=== PATIENT | female | born 1990 | race Caucasian/White ===

== ENCOUNTER → 2016-10-24 | Outpatient (CLI) | payer OTHER | END | disposition home or self-care (01) | LOC: C.PAPS 14:41 | PROVIDERS: ATTEND Obstetrics & Gynecology | DX: Z01.419 Encounter for gynecological examination (general) (routine) without abnormal findings (principal) ==

== ENCOUNTER → 2016-10-24 | Outpatient (CLI) | payer OTHER ==
[2016-10-27 03:06] LABS: CHLAMYDIA TRACH RNA*** NOT DETECTED (NOT DETECTED); GC (NEIS GONORRHOEAE)RNA** NOT DETECTED (NOT DETECTED)
== END | disposition home or self-care (01) ==
LOC: C.LAB1850 11:58
PROVIDERS: ATTEND Obstetrics & Gynecology
DX: Z11.3 Encounter for screening for infections with a predominantly sexual mode of transmission (principal)

== ENCOUNTER → 2016-12-18 | Outpatient (CLI) | payer OTHER ==
[2016-12-18 17:51] LABS: BASO % 0.2 %; BASO ABS # 0.02 K/uL (0-0.2); COMPLETE YES; EOS % 1.9 %; HEMATOCRIT 43.9 % (37-47); IG% 0.2 %; LYMPH % 29.2 %; LYMPH ABS # 2.43 K/uL (1.2-3.4); MEAN CELL VOLUME 88.3 fL (80-100); MEAN CORPUSCULAR HEMOGLOBIN 28.4 pg (25-34); MEAN CORPUSCULAR HGB CONC 32.1 g/dl (32-36); MONO % 6.9 %; NEUT % 61.6 %; PLATELET COUNT 285 K/uL (130-400); RED BLOOD COUNT 4.97 M/uL (4.2-5.4); WHITE BLOOD COUNT 8.32 K/uL (4.8-10.8)
[2016-12-18 18:15] LABS: ALB/GLOB RATIO 0.9 (0.9-2); ALT/SGPT 27 U/L (12-78); AST/SGOT 16 U/L (15-37); BLOOD UREA NITROGEN 14 mg/dl (7-18); BUN/CREATININE RATIO 14.5 (10-20); CALCIUM 8.4 mg/dl (8.5-10.1); CARBON DIOXIDE 25 mmol/L (21-32); CHLORIDE 108 mmol/L (98-107); GLUCOSE 115 mg/dl (70-99); POTASSIUM 3.6 mmol/L (3.5-5.1); SODIUM 141 mmol/L (136-145)
[2016-12-18 18:25] LABS: ALKALINE PHOSPHATASE 66 U/L (45-117)
[2016-12-21 18:28] LABS: IGA SERUM 275 mg/dL (81-463); TIS TRANS IGA 1 U/mL (<4)
== END | disposition home or self-care (01) ==
LOC: C.LABBFT 14:28
PROVIDERS: ATTEND Internal Medicine
DX: K52.9 Noninfective gastroenteritis and colitis, unspecified (principal)

== ENCOUNTER → 2016-12-19 | Outpatient (CLI) | payer OTHER | END | disposition home or self-care (01) | LOC: C.LABSPEC 17:03 | PROVIDERS: ATTEND Internal Medicine | DX: K52.9 Noninfective gastroenteritis and colitis, unspecified (principal) ==

== ENCOUNTER → 2017-01-31 | Outpatient (CLI) | payer OTHER | END | disposition home or self-care (01) | LOC: C.LABSPEC 12:43 | DX: S91.302A Unspecified open wound, left foot, initial encounter (principal); X58.XXXA Exposure to other specified factors, initial encounter ==

== ENCOUNTER → 2017-02-01 | Outpatient (CLI) | payer OTHER ==
--- NOTE | 2017-02-01 10:52 | DIAGNOSTIC IMAGING REPORT ---
LEFT FOOT MIN 3 VIEWS ROUTINE CLINICAL HISTORY: 26 years-old Female presenting with LEFT FOOT WITH PUNCTURE WOUND, CELLULITIS. TECHNIQUE: Frontal, oblique, and lateral views of the left foot were obtained. COMPARISON: None. FINDINGS: Increased soft tissue density and apparent skin thickening over the plantar aspect of the distal foot. No underlying osseous injury or erosion. No malalignment. IMPRESSION: 1. No acute osseous injury or radiographic evidence of osteomyelitis. 2. Soft tissue thickening along the plantar aspect of the distal foot may represent the reported site of abnormality. Electronically signed by: Willie Choudhury M.D. 02/01/2017 10:51 AM Dictated Date/Time: 02/01/2017 10:48 AM
== END | disposition home or self-care (01) ==
LOC: C.RADBBURG 02:03
DX: L03.116 Cellulitis of left lower limb (principal); S91.332A Puncture wound without foreign body, left foot, initial encounter; X58.XXXA Exposure to other specified factors, initial encounter

== ENCOUNTER → 2017-06-25 | Outpatient (CLI) | payer OTHER ==
[2017-06-25 14:05] LABS: PREG INTERNAL NEGATIVE QC NEG CLEAR BACKGROUND; PREG INTERNAL POSITIVE QC POS CONTROL LINE
== END | disposition home or self-care (01) ==
LOC: C.LAB1850 13:05
PROVIDERS: ATTEND Obstetrics & Gynecology
DX: N93.9 Abnormal uterine and vaginal bleeding, unspecified (principal)

== ENCOUNTER → 2017-06-25 | Outpatient (CLI) | payer OTHER | END | disposition home or self-care (01) | LOC: C.PATHSPEC 15:41 | PROVIDERS: ATTEND Obstetrics & Gynecology | DX: N93.9 Abnormal uterine and vaginal bleeding, unspecified (principal) ==

== ENCOUNTER → 2017-10-18 | Outpatient (CLI) | payer OTHER | END | disposition home or self-care (01) | LOC: C.LABSPEC 17:38 | PROVIDERS: ATTEND Nurse Practitioner | DX: R35.0 Frequency of micturition (principal) ==

== ENCOUNTER → 2017-11-18 | Outpatient (CLI) | payer OTHER | END | disposition home or self-care (01) | LOC: C.LABSPEC 13:19 | PROVIDERS: ATTEND Obstetrics & Gynecology | DX: Z01.419 Encounter for gynecological examination (general) (routine) without abnormal findings (principal) ==

== ENCOUNTER → 2017-11-18 | Outpatient (CLI) | payer OTHER | END | disposition home or self-care (01) | LOC: C.PAPS 13:37 | PROVIDERS: ATTEND Obstetrics & Gynecology | DX: Z12.4 Encounter for screening for malignant neoplasm of cervix (principal) ==

== ENCOUNTER → 2018-02-21 | Outpatient (CLI) | payer OTHER | END | disposition home or self-care (01) | LOC: C.LABBFT 10:07 | PROVIDERS: ATTEND Specialist | DX: E28.2 Polycystic ovarian syndrome (principal) ==

== ENCOUNTER 2021-12-07 07:29 | Inpatient (IN) ==
[2021-12-07] MEDS ORDERED: OXYTOCIN 30 UNITS/500 ML BAG IV PRN ×2 (07:39)
[2021-12-07 08:24] LABS: Hemoglobin 11.9 g/dL (12.0-16.0); Mean Corpuscular Hemoglobin 28.5 pg (25-34); Mean Corpuscular Hgb Conc 33.1 g/dL (32-36); Mean Corpuscular Volume 86.1 fL (80-100); Mean Platelet Volume 10.1 fL (7.4-10.4); Platelet Count 268 K/uL (130-400); RDW Coefficient of Variation 16.3 % (11.5-14.5); RDW Standard Deviation 52.1 fL (36.4-46.3); Red Blood Count 4.18 M/uL (4.2-5.4); White Blood Count 10.25 K/uL (4.8-10.8)
[2021-12-07] MEDS: LACTATED RINGER'S 1,000 ML IV PRN ×3 (09:18→17:29)
--- NOTE | 2021-12-07 09:24 | History & Physical Report ---
Date of Service December 07, 2021 Assessment & Plan (1) Type II diabetes mellitus: (2) Diabetes in : Plan: 31 y/o G1 at 39 2/7 wga presents for IOL for T2DM VSS Fetus cat 1 Labor - 35cc lewis placed after verbal consent obtained, pt tolerated well. Will start pit up to [address] T2DM - will start w/ q2h BG, consider q4 if all normal. Q1 in active labor GBS neg epidural PRN Admission and Anticipated Discharge Date Admission Date: December 07, 2021 History of Present Illness Chief Complaint: IOL Primary Care Provider: ARACELI Tejada 31 y/o G1 at 39 2/7 wga presents for IOL for T2DM. +FM; denies regular ctx, LO F, VB PNI: T2DM BMI 45 Clomid preg Rh neg Past [employer] hx: G1 02/2021 neg cotest denies hx STIs Allergies Allergy/AdvReac Type Severity Reaction Status Date / Time No Known Allergies Allergy Verified 12/06/21 09:15 Home Medications Medication Instructions Recorded Confirmed Type nystatin-triamcinolone 100,000 TOP .APPLY SPARINGLY TO AFFECTED 10/07/19 12/06/21 History unit/gram-0.1 % topical ointment AREA(S) 3 TIMES DAILY NEEDED. PRN prenat.vits,margarita,ucg-dvlj-raoit 1 tab PO DAILY 04/26/21 12/06/21 History acetone (urine) test (Ketone Urine #50 ea 05/16/21 12/06/21 Rx Test) pen needle, diabetic 32 gauge x #100 ea 05/16/21 12/06/21 Rx 5/32" (BD Ultra-Fine Marina Pen Needle) progesterone micronized VAGINAL 05/29/21 12/06/21 History insulin NPH isoph U-100 human 100 10 unit SUBCUT HS #15 ml 07/04/21 12/06/21 Rx unit/mL (3 mL) subcutaneous pen (Novolin N Flexpen) metformin 500 mg tablet,extended 500 mg PO DAILY #30 tab 08/11/21 12/06/21 Rx release 24 hr breast pump #1 ea 08/15/21 12/06/21 Rx insulin lispro 100 unit/mL 15 unit SUBCUT TID ml 11/16/21 12/06/21 History subcutaneous pen (Humalog KwikPen (U-100) Insulin) Patient History Medical History Amenorrhea History of chicken pox History of hysterosalpingogram Infertility PCOS (polycystic ovarian syndrome) Prediabetes Type II diabetes mellitus Surgical History History of wisdom tooth extraction S/P colonoscopy Family History Other Breast cancer Diabetes Dyslipidemia Hypertension Denies family history of Ovarian cancer Prostate cancer Colorectal cancer Uterine cancer Social History Smoking Status: Former smoker Cigarettes Per Day: QUIT APR 2018; Second Hand Exposure: No; Hx Alcohol Use: No Hx Substance Use: No Preferred Language: Wolof Communication Ability: Effective Tentering Machine Off Bearer Required: No Beliefs That Will Affect Care: None marital status: marital status details: Catracho Alvarado (31) [phone] Current Living Situation: Spouse Current Living Situation Comment: lives with spouse, dog, cats-paitent wearing gloves/mask current occupational status: employed current occupation: [employer] patient access Feels Safe at Home: Yes Childhood Exposure to Second-Hand Smoke: No caffeine: Yes Dental Care, Regularly: Yes Physical Activity Frequency: 1-2 Times per Week Seatbelt Use: always Sunscreen Use: Yes (505 OF THE TIME) Assistive Devices: None Physical Exam Genitourinary: OB Exam Abdomen: + vertex (confirmed by BSUS) and + estimated weight (7-8) Manual OB Exam: + cervical dilation 1 cm, + cervical effacement 50% and + station -2 OB Exam Monitor Tracing: + external FHT monitor used, + external uterine monitor used (q4-6) and + category I (150/mod/-accel/-decel) Results & Data ([place]) Vital Signs (Past 12 Hours) Vital Signs Temp Pulse Resp BP 12/07/21 08:01 98.1 F 20 12/07/21 07:51 85 136/84 12/07/21 07:45 99 H 163/86 H Laboratory Results OB Labs: Blood Type O Negative 05/09/21 Antibody Screen NEGATIVE 09/22/21 Hemoglobin 11.7 g/dL (12.0-16.0) L 09/22/21 Hematocrit 35.5 % (37-47) L 09/22/21 Mean Corpuscular Volume 83.5 fL (80-100) 05/09/21 Platelet Count 320 K/uL (130-400) 05/09/21 Varicella-Zoster IgG Antibody 1931.00 INDEX 02/21/18 Rubella IgG Antibody Immune (Immune) 05/09/21 Rapid Plasma Reagin Nonreactive (Nonreactive) 05/09/21 Hepatitis B Surface Antigen Neg (Neg) 05/09/21 HIV (1&2) Ab and P24 Ag, 4th Gener Neg (Neg) 05/09/21 OB Optional Labs: Chlamydia trachomatis RNA NOT DETECTED (NOT DETECTED) 05/09/21 Neisseria gonorrhoeae RNA NOT DETECTED (NOT DETECTED) 05/09/21 Thyroid Stimulating Hormone (TSH) 1.560 uIu/ml (0.300-4.500) 03/15/21 Labs Reviewed: declines cf/sma--[facility] low risk panorama--[facility] afp declined----[facility] GBS neg Diagnostic Findings 11/13 EFW 34%, post plac Coding Level of Care Code None Diagnoses Type II diabetes mellitus E11.9 Diabetes in O24.919
--- NOTE | 2021-12-07 11:06 | Communication Note ---
Date of Service: December 07, 2021 Nursing made me aware of elevated BPs. Had normal BP on arrival this AM. Following BP was taken following lewis bulb placement and elevated with mild range repeat. Following that, had severe ranges that were present on both size cuffs. Pt denies s/s pre-eclampsia. She does appear very uncomfortable in bed, she notes not necessarily from lewis bulb itself but from the bed making back very uncomfortable. had her sit in chair and bp was mild range. Will order labs as still mild range when sitting in chair
[2021-12-07 12:28] LABS: Albumin Globulin Ratio 0.9 (0.9-2); Albumin Level 3.1 gm/dl (3.4-5.0); BUN Creatinine Ratio 17.7 (10-20); Bilirubin,Total 0.3 mg/dl (0.2-1.0); Calcium 8.8 mg/dl (8.5-10.1); Creatinine Clr Calc Pharmacy 169.5 ml/min; Est GFR (African American) 141.2 ml/min; Est GFR (Non-African American) 121.9 ml/min; Globulin 3.5 gm/dl (2.5-4.0); Total Protein 6.6 gm/dl (6.0-8.3)
--- NOTE | 2021-12-07 12:35 | Communication Note ---
Date of Service: December 07, 2021 Pt appears very comfortable and without symptoms still. Manual BP cuff noted BP that was just under severe, repeat automatic shortly after was again just under severe. CMP is wnl, UP:C pending. Discussed w/ pt that if continues to have persistent severe range BPs, would meet criteria for severe PIH and recommend magnesium at that time. Pt and verbalize understanding
[2021-12-07 13:51] LABS: Creatinine Urine Random 161.1 mg/dl; Protein Creatinine Ratio Urine 0.4 (0-0.2); Total Protein Urine Random 71.6 mg/dl (0-11.9)
--- NOTE | 2021-12-07 14:26 | Labor Progress Brief Note ---
Date of Service December 07, 2021 Subjective Pt has gotten much more comfortable laying on right side now - BPs have improved to just mild range now that she notes she is more comfortable Assessment & Plan (1) Type II diabetes mellitus: (2) Mild pre-eclampsia: Plan: 31 y/o G1 at 39 2/7 wga presents for IOL for T2DM VSS Fetus cat 1 Labor - [place] out, will titrate pit and plan to arom with next check T2DM - will start w/ q2h BG, remained normal. Q1 in active labor Pre-eclampsia w/o SF - BPs improved to mild range once pt got more comfortable but remained mild range, UP:C 0.4 so meets criteria for PET w/o SF. Will continue to monitor GBS neg epidural PRN Admission and Anticipated Discharge Date Admission Date: December 07, 2021 Physical Exam Genitourinary: Manual OB Exam: + cervical dilation 4 cm, + cervical effacement 50% and + station -2 OB Exam Monitor Tracing: + external FHT monitor used, + external uterine monitor used (q4-6) and + category I (150/mod/-accel/-decel) Balloon was palpated in vagina, SVE performed following removal of balloon Results [facility] Data ([facility]) Vital Signs (Past 12 Hours) Vital Signs Temp Pulse Resp BP 12/07/21 14:06 83 143/81 H 12/07/21 13:54 76 20 146/95 H 12/07/21 13:36 80 179/80 H 12/07/21 13:05 79 142/84 H 12/07/21 13:00 18 12/07/21 12:30 18 12/07/21 12:29 68 159/90 H 12/07/21 11:57 64 20 161/87 H 12/07/21 11:30 98.2 F 69 18 166/81 H 12/07/21 11:00 75 20 148/91 H 12/07/21 10:46 20 12/07/21 10:32 69 20 164/87 H 12/07/21 10:18 70 170/80 H 12/07/21 10:16 71 20 173/86 H 12/07/21 10:01 77 184/91 H 12/07/21 10:00 20 12/07/21 09:29 73 153/90 H 12/07/21 09:27 75 177/93 H 12/07/21 09:00 20 12/07/21 08:01 98.1 F 20 12/07/21 07:51 85 136/84 12/07/21 07:45 99 H 163/86 H Coding Level of Care Code None Diagnoses Type II diabetes mellitus E11.9 Mild pre-eclampsia O14.00
--- NOTE | 2021-12-07 15:53 | Labor Progress Brief Note ---
Date of Service December 07, 2021 Subjective Contractions more painful, BPs primarily mild range - last severe was going off while pt getting up to go to bathroom and mild repeat Assessment & Plan (1) Type II diabetes mellitus: (2) Mild pre-eclampsia: Plan: 31 y/o G1 at 39 2/7 wga presents for IOL for T2DM VSS Fetus cat 1 Labor - pit at 14, now s/p arom - dark mec fluid noted T2DM - q2h BG, remained normal. Q1 in active labor Pre-eclampsia w/o SF - Continue to monitor GBS neg epidural PRN Admission and Anticipated Discharge Date Admission Date: December 07, 2021 Physical Exam Genitourinary: Manual OB Exam: + cervical dilation 4 cm, + cervical effacement 50%, + station -2 and + amniotic fluid (AROM w/ mec fluid) OB Exam Monitor Tracing: + external FHT monitor used, + external uterine monitor used (3-4) and + category I (150/mod/occ accel/-decel) Results & Data ([facility]) Vital Signs (Past 12 Hours) Vital Signs Temp Pulse Resp BP 12/07/21 15:41 67 147/81 H 12/07/21 15:06 66 161/83 H 12/07/21 15:00 18 12/07/21 14:35 68 147/88 H 12/07/21 14:06 83 143/81 H 12/07/21 14:00 18 12/07/21 13:54 76 20 146/95 H 12/07/21 13:36 80 179/80 H 12/07/21 13:05 79 142/84 H 12/07/21 13:00 18 12/07/21 12:30 18 12/07/21 12:29 68 159/90 H 12/07/21 11:57 64 20 161/87 H 12/07/21 11:30 98.2 F 69 18 166/81 H 12/07/21 11:00 75 20 148/91 H 12/07/21 10:46 20 12/07/21 10:32 69 20 164/87 H 12/07/21 10:18 70 170/80 H 12/07/21 10:16 71 20 173/86 H 12/07/21 10:01 77 184/91 H 12/07/21 10:00 20 12/07/21 09:29 73 153/90 H 12/07/21 09:27 75 177/93 H 12/07/21 09:00 20 12/07/21 08:01 98.1 F 20 12/07/21 07:51 85 136/84 12/07/21 07:45 99 H 163/86 H Coding Level of Care Code None Diagnoses Type II diabetes mellitus E11.9 Mild pre-eclampsia O14.00
[2021-12-07] MEDS ORDERED: BUPIVACAINE 0.25% 30 ML VIAL ONE (16:11)
[2021-12-07] MEDS ORDERED: SODIUM CHLORIDE 0.9% INJ 10 ML VIAL ONE (16:11)
[2021-12-07] MEDS ORDERED: fentaNYL citrate 100 MCG/2 ML VIAL ONE (16:11)
[2021-12-07] MEDS ORDERED: ePHEDrine sulfate 50 MG/ML AMP ONE (16:11)
[2021-12-07] MEDS ORDERED: fentaNYL 2MCG/ML ROPIVACAINE 1.25MG/ML 100 ML BAG EPI ONE (16:12)
--- NOTE | 2021-12-07 17:17 | Anesthesiology Consultation ---
Date of Service December 07, 2021 Assessment & Plan Chart Review Chart Review: Acceptable Risk for Labor Epidural Consults Requested none History Height/Weight Height: 5 ft 4 in Weight: 118.388 kg Allergies Allergy/AdvReac Type Severity Reaction Status Date / Time No Known Allergies Allergy Verified 12/07/21 13:32 Medications Home Medications Medication Instructions Recorded Confirmed Last Taken prenat.vits,margarita,kck-rajb-trwcl 1 tab PO DAILY 04/26/21 12/07/21 12/07/21 acetone (urine) test (Ketone Urine #50 ea 05/16/21 12/06/21 Unknown Test) pen needle, diabetic 32 gauge x #100 ea 05/16/21 12/06/21 Unknown " (BD Ultra-Fine Marina Pen Needle) insulin NPH isoph U-100 human 100 10 unit SUBCUT HS #15 ml 07/04/21 12/07/21 12/06/21 unit/mL (3 mL) subcutaneous pen (Novolin N Flexpen) breast pump #1 ea 08/15/21 12/06/21 Unknown insulin lispro 100 unit/mL 15 unit SUBCUT TID ml 11/16/21 12/07/21 12/07/21 06:30 subcutaneous pen (Humalog KwikPen (U-100) Insulin) Active Medications Generic Name Dose Route Start Last Admin Trade Name Freq PRN Reason Stop Dose Admin Oxytocin 30 units in 500 mls @ 14 mls/hr 12/07/21 07:39 12/07/21 14:36 Pitocin IV 12/09/21 07:38 0.84 units/hr .Q24H PRN 14 mls/hr Labor Induction/Augmentation Titration Protocol 0.84 UNITS/HR Lactated Ringer's 1,000 mls @ 125 mls/hr 12/07/21 07:39 12/07/21 16:45 Lr IV 12/09/21 07:38 125 mls/hr .Q8H PRN Infusion L&D Protocol Protocol Past Medical History Medical History Amenorrhea History of chicken pox History of hysterosalpingogram Infertility PCOS (polycystic ovarian syndrome) Prediabetes Type II diabetes mellitus Past Family History Family History Other Breast cancer Diabetes Dyslipidemia Hypertension Denies family history of Ovarian cancer Prostate cancer Colorectal cancer Uterine cancer Past Surgical History Surgical History History of wisdom tooth extraction S/P colonoscopy Social History Smoking Status: Former smoker tobacco type: cigarettes Smoking cigarettes per day: QUIT APR 2018 Hx Alcohol Use: No Hx Substance Use: No substance use type: does not use Physical Exam Vital Signs Last Vital Signs Temp 36.8 C 12/07/21 11:30 Pulse 92 H 12/07/21 17:12 Resp 20 12/07/21 16:30 BP 142/72 H 12/07/21 17:12 Pulse Ox 97 12/07/21 17:12 Testing Laboratory Results 12/07/21 07:55 12/07/21 11:44 12/07/21 12/07/21 12/07/21 16:04 13:53 11:01 POC Glucose 80 86 75 12/07/21 08:59 POC Glucose 116 H
[2021-12-07] MEDS ORDERED: NALOXONE HCL 1 MG in SODIUM CHLORIDE 0.9% 1000ML 1,000 ML IV PRN (17:18)
[2021-12-07] MEDS ORDERED: ePHEDrine sulfate 50 MG/ML AMP IV PRN (17:18)
[2021-12-07] MEDS ORDERED: fentaNYL 2MCG/ML ROPIVACAINE 1.25MG/ML 100 ML BAG EPI PRN (17:18)
[2021-12-07] MEDS ORDERED: NALBUPHINE HCL INJ 10 MG/ML AMP IV PRN (17:18)
[2021-12-07] MEDS ORDERED: diphenhydrAMINE 50 MG/ML VIAL IV PRN (17:18)
[2021-12-07] MEDS ORDERED: NALOXONE HCL 0.4 MG/1 ML VIAL/CARP IV PRN (17:18)
--- NOTE | 2021-12-07 18:58 | Labor Progress Brief Note ---
Date of Service December 07, 2021 Subjective Comfortable w/ epidural, severe BPs that occurred following arom with si gnificant ctx pain now back to mild rnage Assessment & Plan (1) Type II diabetes mellitus: (2) Mild pre-eclampsia: Plan: 31 y/o G1 at 39 2/7 wga presents for IOL for T2DM VSS Fetus cat 1 Labor - pit at 14, progression in station noted, some in dilation as well. IUPC placed for more accurate monitoring, cont augmentation T2DM - q2h BG, remained normal. Q1 in active labor Pre-eclampsia w/o SF - BPS did get severe after arom but pt became very uncomfortable at that time and had been mild range right before so I think pain related. Have settled back into mild range now, will continue to monitor GBS neg epidural severe Admission and Anticipated Discharge Date Admission Date: December 07, 2021 Physical Exam Genitourinary: Manual OB Exam: + cervical dilation (4-5), + cervical effacement 50%, + station -2 (station has progressed from last exam) and + amniotic fluid meconium OB Exam Monitor Tracing: + external FHT monitor used, + intra-uterine pressure catheter used (placed, q3-4) and + category I (150/mod/occ accel/-decel) Results & Data ([facility]) Vital Signs (Past 12 Hours) Vital Signs Temp Pulse Resp BP Pulse Ox 12/07/21 18:52 71 98 12/07/21 18:49 75 148/82 H 12/07/21 18:47 73 165/90 H 95 12/07/21 18:42 74 97 12/07/21 18:37 71 98 12/07/21 18:32 73 159/88 H 99 12/07/21 18:27 72 97 12/07/21 18:25 68 93 12/07/21 18:22 73 99 12/07/21 18:17 73 159/82 H 98 12/07/21 18:12 75 98 12/07/21 18:07 71 97 12/07/21 18:02 71 99 12/07/21 18:00 72 18 142/75 H 12/07/21 17:57 75 99 12/07/21 17:55 76 136/73 12/07/21 17:52 78 97 12/07/21 17:50 76 132/66 12/07/21 17:47 77 97 12/07/21 17:45 75 131/64 12/07/21 17:42 75 98 12/07/21 17:40 78 135/64 12/07/21 17:37 75 99 12/07/21 17:36 75 143/69 H 12/07/21 17:32 82 100 12/07/21 17:30 76 18 121/59 L 12/07/21 17:27 82 98 12/07/21 17:25 80 127/65 12/07/21 17:22 86 130/61 98 12/07/21 17:20 94 H 120/64 12/07/21 17:17 94 H 98 12/07/21 17:12 92 H 142/72 H 97 12/07/21 17:09 108 H 142/73 H 12/07/21 17:07 92 H 98 12/07/21 17:06 92 H 141/72 H 12/07/21 17:03 85 139/67 12/07/21 17:02 75 99 12/07/21 17:01 83 148/86 H 12/07/21 17:00 98.1 F 18 12/07/21 16:57 70 165/84 H 100 12/07/21 16:55 68 158/75 H 12/07/21 16:52 80 98 12/07/21 16:49 81 174/82 H 12/07/21 16:47 71 99 12/07/21 16:42 65 99 12/07/21 16:38 67 184/85 H 12/07/21 16:37 64 100 12/07/21 16:32 69 97 12/07/21 16:30 20 12/07/21 16:17 58 L 179/92 H 12/07/21 16:08 63 183/92 H 12/07/21 15:41 67 147/81 H 12/07/21 15:06 66 161/83 H 12/07/21 15:00 18 12/07/21 14:35 68 147/88 H 12/07/21 14:06 83 143/81 H 12/07/21 14:00 18 12/07/21 13:54 76 20 146/95 H 12/07/21 13:36 80 179/80 H 12/07/21 13:05 79 142/84 H 12/07/21 13:00 18 12/07/21 12:30 18 12/07/21 12:29 68 159/90 H 12/07/21 11:57 64 20 161/87 H 12/07/21 11:30 98.2 F 69 18 166/81 H 12/07/21 11:00 75 20 148/91 H 12/07/21 10:46 20 12/07/21 10:32 69 20 164/87 H 12/07/21 10:18 70 170/80 H 12/07/21 10:16 71 20 173/86 H 12/07/21 10:01 77 184/91 H 12/07/21 10:00 20 12/07/21 09:29 73 153/90 H 12/07/21 09:27 75 177/93 H 12/07/21 09:00 20 12/07/21 08:01 98.1 F 20 12/07/21 07:51 85 136/84 12/07/21 07:45 99 H 163/86 H Coding Level of Care Code None Diagnoses Type II diabetes mellitus E11.9 Mild pre-eclampsia O14.00
[2021-12-07] MEDS ORDERED: CALCIUM CARBONATE 500 MG CHEWABLE TAB PO PRN (19:15)
--- NOTE | 2021-12-07 22:49 | Labor Progress Brief Note ---
Date of Service December 07, 2021 Subjective Comfortable w/ epidural, some pressure Assessment & Plan (1) Type II diabetes mellitus: (2) Mild pre-eclampsia: Plan: 31 y/o G1 at 39 2/7 wga presents for IOL for T2DM VSS Fetus cat 1 Labor - pit at 16, progression in effacement and station noted from my exam. I think pt is starting to kick into labor now, cont monitor T2DM - q2h BG, remained normal. Q1 in active labor Pre-eclampsia w/o SF - BPS stabilized GBS neg epidural in place Admission and Anticipated Discharge Date Admission Date: December 07, 2021 Physical Exam Genitourinary: Manual OB Exam: + cervical dilation (4-5), + cervical efface ment 50% (progression noted from last exam) and + station -1 OB Exam Monitor Tracing: + external FHT monitor used, + intra-uterine pressure catheter used (q3, was adequate but seems like IUPC moved a little during repositioning ) and + category I (150/mod/occ accel/-decel) Results & Data ([facility]) Vital Signs (Past 12 Hours) Vital Signs Temp Pulse Resp BP Pulse Ox 12/07/21 22:42 83 98 12/07/21 22:37 81 99 12/07/21 22:33 77 136/70 12/07/21 22:32 76 96 12/07/21 22:27 89 97 12/07/21 22:22 92 H 96 12/07/21 22:19 82 135/67 12/07/21 22:17 80 96 12/07/21 22:12 80 95 12/07/21 22:07 82 96 12/07/21 22:04 76 134/64 12/07/21 22:02 77 97 12/07/21 21:57 82 97 12/07/21 21:52 86 97 12/07/21 21:48 77 134/73 12/07/21 21:47 72 97 12/07/21 21:42 79 97 12/07/21 21:37 76 96 12/07/21 21:34 83 145/78 H 12/07/21 21:32 89 98 12/07/21 21:27 80 97 12/07/21 21:22 80 97 12/07/21 21:17 90 126/61 98 12/07/21 21:12 83 98 12/07/21 21:07 82 98 05/19/22 21:04 81 131/65 05 21:02 86 97 05 21:00 18 12/07/21 20:57 83 98 05 20:52 80 99 0522 20:51 99.0 F 12/07/21 20:49 94 H 137/75 051922 20:47 78 99 0522 20:46 72 92 051922 20:42 73 97 05 20:37 80 98 051922 20:33 71 144/78 H 12/07/21 20:32 69 97 05 20:27 80 97 12/07/21 20:23 82 94 12/07/21 20:22 71 98 12/07/21 20:18 78 149/87 H 12/07/21 20:17 81 98 12/07/21 20:12 83 100 12/07/21 20:07 75 97 12/07/21 20:03 81 149/77 H 12/07/21 20:02 87 99 12/07/21 20:00 18 12/07/21 19:57 85 97 12/07/21 19:52 81 100 12/07/21 19:47 76 143/73 H 97 12/07/21 19:42 70 98 12/07/21 19:37 73 96 05 19:32 71 144/73 H 97 12/07/21 19:27 77 99 05 19:22 70 98 05 19:18 71 158/78 H 12/07/21 19:17 73 98 05 19:12 67 100 05 19:07 82 97 12/07/21 19:04 69 158/80 H 12/07/21 19:02 71 100 05 19:00 18 12/07/21 18:57 73 100 05 18:52 71 98 0522 18:49 75 148/82 H 22 18:47 73 165/90 H 95 051922 18:42 74 97 051922 18:37 71 98 051922 18:32 73 159/88 H 99 22 18:27 72 97 0522 18:25 68 93 12/07/21 18:22 73 99 12/07/21 18:17 73 159/82 H 98 12/07/21 18:12 75 98 12/07/21 18:07 71 97 12/07/21 18:02 71 99 12/07/21 18:00 72 18 142/75 H 12/07/21 17:57 75 99 12/07/21 17:55 76 136/73 12/07/21 17:52 78 97 12/07/21 17:50 76 132/66 12/07/21 17:47 77 97 12/07/21 17:45 75 131/64 12/07/21 17:42 75 98 12/07/21 17:40 78 135/64 12/07/21 17:37 75 99 12/07/21 17:36 75 143/69 H 12/07/21 17:32 82 100 12/07/21 17:30 76 18 121/59 L 12/07/21 17:27 82 98 12/07/21 17:25 80 127/65 12/07/21 17:22 86 130/61 98 12/07/21 17:20 94 H 120/64 12/07/21 17:17 94 H 98 12/07/21 17:12 92 H 142/72 H 97 12/07/21 17:09 108 H 142/73 H 12/07/21 17:07 92 H 98 12/07/21 17:06 92 H 141/72 H 12/07/21 17:03 85 139/67 12/07/21 17:02 75 99 12/07/21 17:01 83 148/86 H 12/07/21 17:00 98.1 F 18 12/07/21 16:57 70 165/84 H 100 12/07/21 16:55 68 158/75 H 12/07/21 16:52 80 98 12/07/21 16:49 81 174/82 H 12/07/21 16:47 71 99 12/07/21 16:42 65 99 12/07/21 16:38 67 184/85 H 12/07/21 16:37 64 100 12/07/21 16:32 69 97 12/07/21 16:30 20 12/07/21 16:17 58 L 179/92 H 12/07/21 16:08 63 183/92 H 12/07/21 15:41 67 147/81 H 12/07/21 15:06 66 161/83 H 12/07/21 15:00 18 12/07/21 14:35 68 147/88 H 12/07/21 14:06 83 143/81 H 12/07/21 14:00 18 12/07/21 13:54 76 20 146/95 H 12/07/21 13:36 80 179/80 H 12/07/21 13:05 79 142/84 H 12/07/21 13:00 18 12/07/21 12:30 18 12/07/21 12:29 68 159/90 H 12/07/21 11:57 64 20 161/87 H 12/07/21 11:30 98.2 F 69 18 166/81 H 12/07/21 11:00 75 20 148/91 H 12/07/21 10:46 20 Coding Level of Care Code None Diagnoses Type II diabetes mellitus E11.9 Mild pre-eclampsia O14.00
[2021-12-08] MEDS ORDERED: fentaNYL citrate 100 MCG/2 ML VIAL ONE (00:08)
[2021-12-08] MEDS ORDERED: LIDOCAINE 2% MPF LOCAL 5 ML VIAL INFIL ONE (00:09)
[2021-12-08] MEDS: LACTATED RINGER'S 1,000 ML IV PRN (00:18)
[2021-12-08] MEDS ORDERED: NURSING L&D Epidural Breakthrough Pain Update ONE (00:25)
[2021-12-08] MEDS ORDERED: DIPHTHERIA/TETANUS/PERTUSSIS 0.5 ML SYR/VIAL IM ONE (03:54)
[2021-12-08] MEDS ORDERED: OXYTOCIN 30 UNITS/500 ML BAG IV PRN (03:54)
[2021-12-08] MEDS ORDERED: HYDROCORTISONE ACETATE 25 MG SUPP PR PRN (03:54)
[2021-12-08] MEDS ORDERED: BENZOCAINE 20% AER SPR 82.5 GM CAN EXT PRN (03:54)
[2021-12-08 04:00] LABS: Base Excess Cord Venous Blood -8.6 mEq/L (-7.7-1.9); Cord Venous Blood HCO3 19 mmol/L (18.4-26.8); Cord Venous Blood PCO2 46 mmHg (30.4-57.2); Cord Venous Blood PO2 23 mmHg (14.1-43.3); Cord Venous Blood pH 7.23 (7.20-7.44)
[2021-12-08 04:01] LABS: CO2 Cord Arterial Blood 46 mmHg (39.1-73.5); HCO3 Cord Arterial Blood 19 mmol/L (19.7-28.5); O2 Saturation Cord Venous Bld < 60.0 % (<68); Oxygen Sat Cord Arterial Blood < 60.0 % (<60); PO2 Cord Arterial Blood 22 mmHg (4.1-31.7); pH Cord Arterial Blood 7.23 (7.1-7.38)
--- NOTE | 2021-12-08 04:03 | Delivery Summary ---
Vaginal Delivery Summary Date of Service December 08, 2021 Vaginal Delivery Summary (vaginal and labial tear) PREOPERATIVE DIAGNOSIS: 1. Single intrauterine at 39 3/7 wga 2. Type 2 diabetes 3. Pre-eclampsia without severe features 4. BMI 45 POSTOPERATIVE DIAGNOSIS: 1. Single intrauterine at 39 3/7 wga 2. Type 2 diabetes 3. Pre-eclampsia without severe features 4. BMI 45 5. Delivered PROCEDURE: 1. Normal spontaneous vaginal delivery. SURGEON: Aaliyah Hernandez MD ANESTHESIA: Epidural. ESTIMATED BLOOD LOSS: 500 mL FLUIDS: Continuous LR. URINE OUTPUT: None. COMPLICATIONS: One minute shoulder dystocia CONDITION: Stable. INDICATIONS: 31 yo G1 at 39 3/7 wga presented for induction of labor for type 2 diabetes. Induction was begun with lewis bulb and pitocin. Following lewis bulb placement, blood pressures were noted to be elevated to severe ranges and initially thought to be due to discomfort from lewis. These did improve to mild range BPs when she was more comfortable but labs were drawn and within normal limits except an elevated UP:C. BPs remained mild range but she met criteria for pre-eclampsia without severe features with elevated UP:C. After lewis bulb expulsion, pitocin was titrated up and she underwent artificial rupture of me mbranes for meconium. She then received an epidural for pain control. She continued to progress to complete and desired to push FINDINGS: A viable male , weight 3449g with Apgars of 6 and 8 at 1 and 5 minutes respectively. SPECIMEN: Cord blood, cord gases, placenta OPERATIVE REPORT: The patient progressed to 10 cm, 100% effaced and +2 station, pushed over intact perineum with anesthesia to deliver a viable male infant, weight and Apgars as above. Head of delivered in SHAHAB position. No nuchal cord was present. Body and shoulders did not deliver with gentle downward traction of the anticipated anterior shoulder. Shoulder dystocia was called, head of bed was instructed to be laid down. McRobert's maneuver and suprapubic pressure were applied but anterior shoulder did not deliver. Head re-restituted to [place] and suprapubic pressure was applied to the contralateral direction and anterior shoulder (right) did deliver at that point. Remainder of body delivered spontaneously. was delivered to maternal abdomen and nursing staff. Delayed cord clamping was deferred due to infant being slow to be vigorous. Cord was clamped and cut and baby was taken to nursery staff. Cord segment and blood were obtained. Placenta delivered spontaneously intact with 3- vessel cord with true knot. IV oxytocin and fundal massage were given for excellent hemostasis. Vagina, cervix, perineum, and placenta were inspected. A left vaginal tear was repaired using 3-0 vicryl and and a right labial was repaired using 4-0 vicryl. Hemostatic left labial abrasions were noted and not needed to be repaired. Sponge and needle counts correct x2. No sponges were left behind. Mother and stable in immediate period. [facility] [place] Vaginal Delivery Codes: 93722 global code for the antepartum, delivery, and post- Delivery Type Details: (vaginal and labial tear)
[2021-12-08] MEDS: IBUPROFEN 600 MG TAB PO PRN (05:59)
[2021-12-08] MEDS ORDERED: CARBOPROST TROMETHAMINE 250 MCG/ML AMPUL IM ONE (08:33)
[2021-12-08] MEDS ORDERED: CARBOPROST TROMETHAMINE 250 MCG/ML AMPUL ONE (08:37)
[2021-12-08] MEDS ORDERED: OXYTOCIN 30 UNITS/500 ML BAG IV ONE (08:38)
[2021-12-08] MEDS ORDERED: BUTORPHANOL TARTRATE 1 MG/ML VIAL ONE (08:51)
[2021-12-08] MEDS ORDERED: miSOPROStoL 200 MCG TAB ONE ×2 (08:55→17:24)
[2021-12-08] MEDS ORDERED: ceFAZolin 2000MG 2,000 MG/15 ML SYR IV ONE (09:05)
[2021-12-08] MEDS ORDERED: SODIUM CHLORIDE 0.9% 250 ML IV PRN ×2 (09:17→09:42)
--- NOTE | 2021-12-08 09:17 | Communication Note ---
Date of Service: December 08, 2021 RN made myself and on-call provider who were in a that pt had felt a gush and gone to the bathroom and subsequently had syncopal episode while on the toilet and nurses found her. They were able to get her back in bed, vitals were stable and started a bag of pitocin for the bleeding due to boggy uterus. Myself and on-call provider instructed nursing to obtain cbc, cmp and give a dose of hemabate. Shortly after, nurses returned stating that it had not significantly improved and so I scrubbed out and presented to pt's room. Pt was laying in bed, did appear pale. Examination of introitus demonstrated small amount of clot that was removed with 4x4s. Examination of vagina noted tears remained hemostatic. Bimanual exam was performed and I was able to palpate clot in the lower uterine segment/in the cervix and removed some of it. As epidural was capped, 1mg stadol was ordered so that manual extraction of clot could be performed. Once pt was more comfortable, two sweeps of the DEAN were performed and removed large amount of clot, weight pending. Bleeding appeared to improve and 1000mcg of cytotec was placed [place] and 2g ancef q8h x 24hrs ordered. BP was normotensive. Of note, pt has been hypertensive as diagnosed w/ PET w/o SF. She was primarily mild range BPs and only had severe BPs noted following painful interventions such as lewis bulb placement, AROM, and becoming more painful prior to epidural redose so was not felt to have severe features. In the immediate pp period was normal to mild range, had severe ranges just before transfer to that nursing told me was related to laying on the cuff. On the pp floor, BP was mild range but repeat 1 hr later was normotensive and nursing noted fundus was firm at that time prior to bleeding episode. Bleeding had improved prior to my leaving room and nursing noted it had improved when they checked shortly after.
--- NOTE | 2021-12-08 09:45 | Obstetrical Progress Note ---
Date of Service December 08, 2021 Assessment & Plan Admission and Anticipated Discharge Date Admission Date: December 07, 2021 Subjective I went to see patient after receiving report from Dr Hernandez about the hemorrhage events - she is lying in bed, awake and talking. Feeling a bit dizzy and hot. On exam, uterine fundus is firm, there are no further clots expressed with fundal massage, and she has a small amount of dark lochia expressed with massage. CBC has been drawn, but there are no results at the time of my exam. Given report of approx 1200 ml blood loss by RN who measured chux pads during prior bleeding episode, I counseled patient that I think she would benefit from blood transfusion. Reviewed risks/benefits/alternatives, informed consent, questions answered. She agreed to transfusion. I placed orders for transfusion and called blood bank and notified RN to transfuse 2u. Results & Data ([facility]) Vital Signs (Past 12 Hours) Vital Signs Temp Pulse Pulse Resp BP BP Pulse Ox 12/08/21 08:37 120 H 20 117/81 97 12/08/21 06:30 157/101 H 12/08/21 05:44 101 H 163/80 H 12/08/21 05:42 113 H 162/79 H 12/08/21 05:34 113 H 167/87 H 12/08/21 05:19 104 H 159/77 H 12/08/21 05:04 96 H 156/76 H 12/08/21 04:48 118 H 139/76 12/08/21 04:33 121 H 138/81 12/08/21 04:18 123 H 140/82 12/08/21 04:04 134 H 141/79 H 12/08/21 03:48 125 H 133/82 12/08/21 03:47 130 H 97 12/08/21 03:42 118 H 97 12/08/21 03:39 133 H 94 12/08/21 03:37 124 H 97 12/08/21 03:33 127 H 142/71 H 12/08/21 03:32 121 H 97 12/08/21 03:27 131 H 97 12/08/21 03:22 131 H 97 12/08/21 03:18 123 H 137/73 12/08/21 03:17 123 H 97 12/08/21 03:14 130 H 94 12/08/21 03:12 126 H 95 12/08/21 03:07 168 H 96 12/08/21 03:02 126 H 97 12/08/21 02:57 152 H 94 12/08/21 02:52 121 H 97 12/08/21 02:51 153 H 85 L 12/08/21 02:47 128 H 97 12/08/21 02:42 119 H 98 12/08/21 02:37 115 H 97 12/08/21 02:35 142 H 105/76 12/08/21 02:32 118 H 97 12/08/21 02:27 130 H 100 12/08/21 02:22 137 H 99 12/08/21 02:20 89 162/77 H 12/08/21 02:17 91 H 99 12/08/21 02:12 85 100 12/08/21 02:07 91 H 100 12/08/21 02:06 86 166/76 H 12/08/21 02:04 89 168/85 H 12/08/21 02:02 95 H 100 12/08/21 01:57 89 100 12/08/21 01:52 95 H 182/86 H 99 12/08/21 01:47 84 100 12/08/21 01:42 101 H 97 12/08/21 01:41 98 H 93 12/08/21 01:37 98 H 99 12/08/21 01:35 89 142/84 H 12/08/21 01:32 93 H 97 12/08/21 01:27 83 96 12/08/21 01:22 87 95 12/08/21 01:18 86 128/60 12/08/21 01:17 87 95 12/08/21 01:12 87 95 12/08/21 01:07 85 95 12/08/21 01:04 78 134/65 0520 01:02 81 95 05 00:57 81 96 052022 00:52 84 95 052022 00:49 79 131/60 052022 00:47 84 95 052022 00:45 37.0 C 12/08/21 00:42 87 95 0520 00:38 85 94 0520 00:37 82 95 052022 00:34 81 129/65 05/20/22 00:32 88 95 05 00:27 85 95 05 00:26 88 94 05 00:22 84 96 12/08/21 00:18 84 143/68 H 12/08/21 00:17 84 98 05 00:16 87 157/80 H 12/08/21 00:13 84 150/84 H 12/08/21 00:12 82 98 12/08/21 00:07 87 99 12/08/21 00:04 86 145/76 H 12/08/21 00:02 73 100 12/07/21 23:57 76 99 05 23:52 85 99 12/07/21 23:47 82 149/75 H 98 12/07/21 23:42 88 98 12/07/21 23:39 98 H 93 12/07/21 23:37 85 98 12/07/21 23:34 87 147/84 H 12/07/21 23:32 83 95 12/07/21 23:27 83 100 12/07/21 23:22 89 98 05 23:17 83 157/77 H 97 12/07/21 23:12 83 99 05 23:07 88 98 05 23:04 93 H 158/77 H 12/07/21 23:02 86 99 12/07/21 22:57 91 H 98 12/07/21 22:52 92 H 97 12/07/21 22:51 76 143/67 H 12/07/21 22:47 37.2 C 81 100 12/07/21 22:42 83 98 12/07/21 22:37 81 99 05 22:33 77 136/70 05 22:32 76 96 05 22:27 89 97 05 22:22 92 H 96 05 22:19 82 135/67 05 22:17 80 96 05 22:12 80 95 05 22:07 82 96 05 22:04 76 134/64 051922 22:02 77 97 051922 21:57 82 97 051922 21:52 86 97 0522 21:48 77 134/73 0522 21:47 72 97 PG Care Time/CCT Total # of Minutes Spent Total Time Spent with Patient: Total time spent is greater than 50% in coordination of care (as documented) at patient's floor/unit and/or counseling patient: Coding Level of Care Code None
[2021-12-08 09:52] LABS: Basophils # (auto) 0.02 K/uL (0-0.2); Basophils % (auto) 0.1 %; Hemoglobin 8.6 g/dL (12.0-16.0); Immature Granulocytes # (auto) 0.09 K/uL (0.00-0.02); Immature Granulocytes % (auto) 0.5 %; Lymphocytes # (auto) 1.41 K/uL (1.2-3.4); Lymphocytes % (auto) 7.1 %; Mean Corpuscular Hemoglobin 27.7 pg (25-34); Mean Corpuscular Hgb Conc 31.9 g/dL (32-36); Mean Corpuscular Volume 86.8 fL (80-100); Mean Platelet Volume 10.2 fL (7.4-10.4); Monocytes # (auto) 0.75 K/uL (0.11-0.59); Monocytes % (auto) 3.8 %; Neutrophils % (auto) 88.5 %; Platelet Count 248 K/uL (130-400); RDW Coefficient of Variation 16.6 % (11.5-14.5); RDW Standard Deviation 52.4 fL (36.4-46.3); Red Blood Count 3.11 M/uL (4.2-5.4); White Blood Count 19.77 K/uL (4.8-10.8)
[2021-12-08 09:58] LABS: Albumin Level 2.4 gm/dl (3.4-5.0); BUN Creatinine Ratio 14.4 (10-20); Bilirubin,Total 0.4 mg/dl (0.2-1.0); Creatinine Clr Calc Pharmacy 116.7 ml/min; Est GFR (African American) 100.1 ml/min; Est GFR (Non-African American) 86.4 ml/min; Globulin 2.5 gm/dl (2.5-4.0); Potassium 3.9 mmol/L (3.5-5.1); Total Protein 4.9 gm/dl (6.0-8.3)
--- NOTE | 2021-12-08 10:48 | Obstetrical Progress Note ---
Date of Service December 08, 2021 Assessment & Plan Admission and Anticipated Discharge Date Admission Date: December 07, 2021 Subjective Recheck of patient reveals stable vitals - pulse 89 and BP wnl (per nurse's handwritten notes, not yet able to chart). Pt awake talking. Fundus is firm, minimal lochia, appears less than my previous exam. Hgb 8.6. Blood has been ordered, but not yet started. I have asked for patient to be either transferred back to L&D or for charge nurse to bring in on-call nursing staff to have smaller ratio to take care of this patient - she has called in an additional nurse to take care of this patient. Will plan to get transfusion underway, continue pitocin via IV, continue close monitoring of patient. Results & Data ([facility]) Vital Signs (Past 12 Hours) Vital Signs Temp Pulse Pulse Resp BP BP Pulse Ox 12/08/21 08:37 120 H 20 117/81 97 12/08/21 06:30 157/101 H 12/08/21 05:44 101 H 163/80 H 12/08/21 05:42 113 H 162/79 H 12/08/21 05:34 113 H 167/87 H 12/08/21 05:19 104 H 159/77 H 12/08/21 05:04 96 H 156/76 H 12/08/21 04:48 118 H 139/76 12/08/21 04:33 121 H 138/81 12/08/21 04:18 123 H 140/82 12/08/21 04:04 134 H 141/79 H 12/08/21 03:48 125 H 133/82 12/08/21 03:47 130 H 97 12/08/21 03:42 118 H 97 12/08/21 03:39 133 H 94 12/08/21 03:37 124 H 97 12/08/21 03:33 127 H 142/71 H 12/08/21 03:32 121 H 97 12/08/21 03:27 131 H 97 12/08/21 03:22 131 H 97 12/08/21 03:18 123 H 137/73 12/08/21 03:17 123 H 97 12/08/21 03:14 130 H 94 12/08/21 03:12 126 H 95 12/08/21 03:07 168 H 96 12/08/21 03:02 126 H 97 12/08/21 02:57 152 H 94 12/08/21 02:52 121 H 97 12/08/21 02:51 153 H 85 L 12/08/21 02:47 128 H 97 12/08/21 02:42 119 H 98 12/08/21 02:37 115 H 97 12/08/21 02:35 142 H 105/76 12/08/21 02:32 118 H 97 12/08/21 02:27 130 H 100 12/08/21 02:22 137 H 99 12/08/21 02:20 89 162/77 H 12/08/21 02:17 91 H 99 12/08/21 02:12 85 100 12/08/21 02:07 91 H 100 12/08/21 02:06 86 166/76 H 12/08/21 02:04 89 168/85 H 12/08/21 02:02 95 H 100 12/08/21 01:57 89 100 12/08/21 01:52 95 H 182/86 H 99 12/08/21 01:47 84 100 12/08/21 01:42 101 H 97 12/08/21 01:41 98 H 93 12/08/21 01:37 98 H 99 12/08/21 01:35 89 142/84 H 12/08/21 01:32 93 H 97 12/08/21 01:27 83 96 12/08/21 01:22 87 95 12/08/21 01:18 86 128/60 05 01:17 87 95 12/08/21 01:12 87 95 12/08/21 01:07 85 95 05 01:04 78 134/65 0520 01:02 81 95 05 00:57 81 96 052022 00:52 84 95 052022 00:49 79 131/60 052022 00:47 84 95 052022 00:45 37.0 C 05 00:42 87 95 052022 00:38 85 94 052022 00:37 82 95 052022 00:34 81 129/65 052022 00:32 88 95 052022 00:27 85 95 0520/22 00:26 88 94 05/20/22 00:22 84 96 12/08/21 00:18 84 143/68 H 12/08/21 00:17 84 98 12/08/21 00:16 87 157/80 H 12/08/21 00:13 84 150/84 H 12/08/21 00:12 82 98 12/08/21 00:07 87 99 12/08/21 00:04 86 145/76 H 12/08/21 00:02 73 100 12/07/21 23:57 76 99 12/07/21 23:52 85 99 12/07/21 23:47 82 149/75 H 98 12/07/21 23:42 88 98 12/07/21 23:39 98 H 93 12/07/21 23:37 85 98 12/07/21 23:34 87 147/84 H 12/07/21 23:32 83 95 12/07/21 23:27 83 100 12/07/21 23:22 89 98 12/07/21 23:17 83 157/77 H 97 12/07/21 23:12 83 99 12/07/21 23:07 88 98 12/07/21 23:04 93 H 158/77 H 12/07/21 23:02 86 99 12/07/21 22:57 91 H 98 12/07/21 22:52 92 H 97 12/07/21 22:51 76 143/67 H 12/07/21 22:47 37.2 C 81 100 PG Care Time/CCT Total # of Minutes Spent Total Time Spent with Patient: Total time spent is greater than 50% in coordination of care (as documented) at patient's floor/unit and/or counseling patient: Coding Level of Care Code None
[2021-12-08] MEDS ORDERED: OXYTOCIN 30 UNITS in LACTATED RINGER'S 1,000 ML IV SCH (11:00)
--- NOTE | 2021-12-08 14:24 | Anesthesia Procedure Note ---
Date of Service December 08, 2021 Anesthesia Post Epidural Note Vital Signs Vital Signs: Temp Pulse Resp BP Pulse Ox 36.4 C L 79 18 131/96 99 12/08/21 13:49 12/08/21 13:49 12/08/21 13:49 12/08/21 13:49 12/08/21 13:49 Notes Mental Status: alert / awake / arousable and participated in evaluation Patient Amnestic to Procedure: No Nausea / Vomiting: adequately controlled Pain: adequately controlled Airway Patency, RR, SpO2: stable & adequate BP & HR: stable & adequate Hydration State: stable & adequate Neuraxial Anesthesia: was administered and sensory block resolved Anesthetic Complications: no major complications apparent and Pt Satisfied with anesthetic care Epidural: Removed without complications and With tip intact
[2021-12-08] MEDS: ceFAZolin 2000MG 2,000 MG/15 ML SYR IV SCH ×2 (18:34→21:06)
[2021-12-08 19:09] LABS: Hematocrit (blood only) 30.1 % (37-47)
[2021-12-08] MEDS: PRENATAL VITAMIN 1 TAB PO SCH (19:15)
[2021-12-08] MEDS: DOCUSATE SODIUM 100 MG CAP PO SCH ×2 (19:15→21:28)
[2021-12-08] MEDS: FERROUS SULFATE 325 MG TAB PO SCH (19:15)
[2021-12-08] MEDS ORDERED: Nursing to Pharmacy Communication SCH (20:45)
[2021-12-08] MEDS: ACETAMINOPHEN 325 MG TAB PO PRN (21:04)
[2021-12-09] MEDS: IBUPROFEN 600 MG TAB PO PRN ×3 (00:13→16:07)
[2021-12-09] MEDS: ACETAMINOPHEN 325 MG TAB PO PRN ×3 (05:14→20:28)
[2021-12-09] MEDS: ceFAZolin 2000MG 2,000 MG/15 ML SYR IV SCH (05:15)
--- NOTE | 2021-12-09 06:53 | Obstetrical Progress Note ---
Date of Service December 09, 2021 Assessment & Plan (1) hemorrhage: PPD#1 doing well. Hemorrhage resolved. Waiting on labs this morning. Continue routine care. BP and pulse wnl. Anticipate DC home tomorrow. Subjective Ambulation: ambulating normally Voiding: no voiding problems Diet Tolerance:: regular diet Lochia:: Moderate . Sitting in nursery with baby during rounds. No further bleeding, is feeling well after 2u PRBC. Review of Systems All systems reviewed & are unremarkable except as noted in HPI & below Physical Exam Constitutional WD/WN, vitals as above no acute distress Respiratory normal respiratory effort Cardiovascular Rate/Rhythm: regular rate and regular rhythm Gastrointestinal (Abdomen) Inspection/Auscultation: abdomen normal to inspection; abdomen not distended Percussion/Palpation: abdomen soft Genitourinary OB Exam Abdomen: + fundal height Fundus: + firm; not tender Results & Data ([place]) Vital Signs (Past 12 Hours) Vital Signs Temp Pulse Pulse Resp BP BP Pulse Ox 12/09/21 05:10 36.5 C 84 17 103/70 99 12/09/21 00:21 36.4 C L 101 H 17 117/75 98 12/09/21 00:10 36.4 C L 101 H 16 117/75 98 12/08/21 21:20 108/73 12/08/21 20:50 37.0 C 98 H 17 92/60 L 99
[2021-12-09 07:27] LABS: Hematocrit (blood only) 26.3 % (37-47); Hemoglobin 8.6 g/dL (12.0-16.0); Mean Corpuscular Hemoglobin 28.1 pg (25-34); Mean Corpuscular Hgb Conc 32.7 g/dL (32-36); Mean Corpuscular Volume 85.9 fL (80-100); Mean Platelet Volume 9.8 fL (7.4-10.4); Platelet Count 207 K/uL (130-400); RDW Coefficient of Variation 16.5 % (11.5-14.5); RDW Standard Deviation 51.7 fL (36.4-46.3); Red Blood Count 3.06 M/uL (4.2-5.4)
[2021-12-09] MEDS: FERROUS SULFATE 325 MG TAB PO SCH (08:20)
[2021-12-09] MEDS: PRENATAL VITAMIN 1 TAB PO SCH (08:20)
[2021-12-09] MEDS: DOCUSATE SODIUM 100 MG CAP PO SCH ×2 (08:20→20:28)
[2021-12-09] MEDS ORDERED: bisacodyL 5 MG TABEC PO SCH (20:00)
[2021-12-10] MEDS ORDERED: bisacodyL 10 MG SUPP PR PRN
[2021-12-10] MEDS: IBUPROFEN 600 MG TAB PO PRN (00:07)
--- NOTE | 2021-12-10 07:15 | Obstetrical Progress Note ---
Date of Service December 10, 2021 Assessment & Plan (1) hemorrhage: day #2 she did have a hemorrhage and transfusion of 2 units of packed cells she feels well today her baby will likely stay so she will be discharged to [facility] Subjective Ambulation: ambulating normally Voiding: no voiding problems Passing Gas:: Yes Diet Tolerance:: regular diet Lochia:: Small Results & Data ([facility]) Vital Signs (Past 12 Hours) Vital Signs Temp Pulse Resp BP Pulse Ox 12/09/21 20:30 98.6 F 90 18 130/76 98
[2021-12-10] MEDS: ACETAMINOPHEN 325 MG TAB PO PRN ×2 (07:27→16:59)
[2021-12-10] MEDS: PRENATAL VITAMIN 1 TAB PO SCH (08:38)
[2021-12-10] MEDS: DOCUSATE SODIUM 100 MG CAP PO SCH (08:38)
[2021-12-10] MEDS: FERROUS SULFATE 325 MG TAB PO SCH (08:38)
--- NOTE | 2021-12-14 11:35 | Coding Query ---
BMI To promote full compliance with coding requirements relating to patient care, physician participation is requested in all cases of drain technician uncertainty. Please assist us with the question(s) below: Please place an X within the parenthesis (x). If other, please document: BMI 45 was documented in this record for this patient. If the BMI is significant, please check the box that provides a more specific associated diagnosis: ( ) Overweight/Obese (X ) Obesity ( ) Morbid obesity ( ) Obesity Hypoventilation Syndrome (OHS) ( ) Heathy weight, not significant ( ) Underweight/Thin ( ) Other, please specify Thank you Sabi BOSWELL
--- NOTE | 2021-12-14 11:37 | Coding Query ---
TREATMENT RENDERED WITHOUT A DIAGNOSIS To promote full compliance with coding requirements relating to patient care, physician participation is requested in all cases of transcribing operator head uncertainty. Please assist us with the question(s) below: Coding Question: The patient is receiving transfusion of packed RBC, as noted in the 12/08 progress note of the record. Please document the diagnosis that is being addressed by the medication/treatment. Provider Response: anemia acute loss Thank you Sabi BOSWELL
== END 2021-12-10 18:00 | disposition home or self-care (01) | DRG 806 ==
LOC: 4S1 07:29 → 4E2 12-08 06:47